=== PATIENT | female | born 1975 | race Caucasian/White ===

== ENCOUNTER 2019-03-26 14:36 | Emergency (ER) | payer BC, MEDICAID ==
[~2019-03-26] VITALS: Ht 167.6 cm; Wt 87.3 kg
[2019-03-26 14:48] VITALS: BP 123/71
[2019-03-26] MEDS ORDERED: HYDR-4353 PO (15:09)
[2019-03-26] MEDS ORDERED: PRED20TA PO (15:09)
[2019-03-26] MEDS ORDERED: CEPH500C5 PO (15:16)
[2019-03-26] MEDS ORDERED: predniSONE 20 mg tablet PO ONE (15:20)
[2019-03-26] MEDS ORDERED: ketorolac trometh inj. 60 MG/2 ML VIAL IM ONE (15:20)
[2019-03-26] MEDS ORDERED: cephalexin 250mg capsule PO ONE (15:20)
== END 2019-03-26 15:53 | disposition home or self-care (01) ==
LOC: ER 14:37
DX: T63.441A Toxic effect of venom of bees, accidental (unintentional), initial encounter (principal); Z79.2 Long term (current) use of antibiotics; Z79.899 Other long term (current) drug therapy; Y92.89 Other specified places as the place of occurrence of the external cause
CPT/HCPCS: 96372; 99283; J1885; J7512

== ENCOUNTER 2019-04-03 15:58 | Emergency (ER) | payer BC, MEDICAID ==
[~2019-04-03] VITALS: Ht 167.6 cm; Wt 89.0 kg
[~2019-04-03 15:58] MED LIST: CEPH500C5 PO; HYDR-4353 PO
[2019-04-03] MEDS ORDERED: ondansetron/PF 4mg/2ml inj IV ONE (16:15)
[2019-04-03] MEDS ORDERED: normal saline 1000ML IV soln IVB ONE (16:15)
[2019-04-03 17:09] LABS: CLARITY,URINE CLEAR (Clear); COLOR,URINE YELLOW (Yellow); GLUCOSE, URINE NEGATIVE (Neg); KETONES,URINE NEGATIVE (Neg); LEUKOCYTE ESTERASE ,URINE NEGATIVE (Neg); NITRITES, URINE NEGATIVE (Neg); OCCULT BLOOD,URINE MODERATE (Neg); PH,URINE 5.5 (4.8-8.0); PROTEIN,URINE NEGATIVE (Neg); UROBILINOGEN,URINE 0.2 E.U/dL (0.2-1.0)
[2019-04-03 17:14] LABS: BASOPHILS # (AUTO) 0.1 X10'3 (0-0.2); BASOPHILS % (AUTO) 0.7 % (0-1); EOSINOPHILS # (AUTO) 0.3 X10'3 (0-0.9); EOSINOPHILS % (AUTO) 2.5 % (0-6); HEMATOCRIT 47.3 % (35.0-45.0); HEMOGLOBIN 16.1 g/dl (12.0-16.0); LYMPHOCYTES # (AUTO) 3.8 X10'3 (1.1-4.8); MEAN CORPUSCULAR HEMOGLOBIN 30.6 PG (27.0-31.0); MEAN CORPUSCULAR HGB CONC 34.1 g/dL (33.0-36.5); MEAN CORPUSCULAR VOLUME 89.9 FL (78-98); MEAN PLATELET VOLUME 7.6 FL (7.4-10.4); MONOCYTES # (AUTO) 0.8 X10'3 (0-0.9); MONOCYTES % (AUTO) 6.8 % (2-12); NEUTROPHILS # (AUTO) 7.2 X10'3 (1.8-7.7); PLATELET COUNT 271 X10'3 (140-440); RED BLOOD COUNT 5.27 X10'6 (4.20-5.60); RED CELL DISTRIBUTION WIDTH 12.4 % (11.5-14.5); WHITE BLOOD COUNT 12.1 X10'3 (4.5-11.0)
[2019-04-03 17:17] LABS: UA COLLECTION TYPE CLN CATCH MIDSTREAM
[2019-04-03 17:20] LABS: MUCUS STRANDS MODERATE /LPF (Neg); SQUAMOUS EPITHELIAL CELL,UR FEW /LPF (FEW)
[2019-04-03 17:23] LABS: ALANINE AMINOTRANSFERASE 21 U/L (12-78); ALBUMIN 3.9 G/DL (3.4-5.0); ALKALINE PHOSPHATASE 85 IU/L (46-116); ANION GAP 8 (8-16); ASPARTATE AMINO TRANSFERASE 16 U/L (10-37); BILIRUBIN,TOTAL 0.3 MG/DL (0.1-1.0); BLOOD UREA NITROGEN 10 MG/DL (7-18); BUN/CREATININE RATIO 13.9 (6.6-38.0); CALCIUM 9.9 MG/DL (8.5-10.1); CHLORIDE 108 MMOL/L (99-107); CREATININE 0.72 MG/DL (0.40-0.90); GLUCOSE 93 MG/DL (70-104); SODIUM 143 MMOL/L (135-145); TOTAL CARBON DIOXIDE 27.3 MMOL/L (24-32); TOTAL PROTEIN 7.7 G/DL (6.4-8.2); eGFR 89 ML/MIN
[2019-04-03 17:23] LABS: BACTERIA,URINE FEW /HPF (Neg)
[2019-04-03 17:24] LABS: WBC,URINE NONE SEEN /HPF (0-4); YEAST FEW /HPF (NEGATIVE)
[2019-04-03 17:49] VITALS: BP 129/84
[2019-04-03] MEDS ORDERED: ONDA4TAB6 PO (17:52)
--- NOTE | 2019-04-03 18:00 | NUR ---
PT IV FLUID FINISHED .PT VITALS CHECKED STABLE,PT SAID SHE FELT REALLY GOOD AFTER THE IV FLUID.DENIES ANY CONCERN.
== END 2019-04-03 18:13 | disposition home or self-care (01) ==
LOC: ER 15:58
DX: R11.2 Nausea with vomiting, unspecified (principal); R42 Dizziness and giddiness; R53.83 Other fatigue
CPT/HCPCS: 36415; 80053; 81001; 85025; 93005; 96361; 96374; 99284; J2405; J7030